=== PATIENT | female | born 1975 | race Caucasian/White ===

== ENCOUNTER 2020-06-20 08:00 | Outpatient (CLI) | payer OTHER ==
[2020-06-20 11:57] LABS: BASOPHILS # (AUTO) 0.1 10^3/uL (0.0-0.1); BASOPHILS % (AUTO) 0.6 %; EOSINOPHILS # (AUTO) 0.1 10^3/uL (0.0-0.7); EOSINOPHILS % (AUTO) 1.3 %; HGB - HEMOGLOBIN 13.8 g/dL (12.0-16.0); LYMPHOCYTES # (AUTO) 1.5 10^3/uL (1.5-3.5); LYMPHOCYTES % (AUTO) 18.8 %; MEAN CORPUSCULAR HEMOGLOBIN 29.4 pg (27.0-31.0); MEAN CORPUSCULAR HGB CONC 32.1 g/dL (32.0-36.0); MEAN CORPUSCULAR VOLUME 91.7 fL (81.0-99.0); MONOCYTES # (AUTO) 0.5 10^3/uL (0.0-1.0); MONOCYTES % (AUTO) 6.1 %; NEUTROPHILS # (AUTO) 5.7 10^3/uL (1.5-6.6); NEUTROPHILS % (AUTO) 72.8 %; PLT - PLATELET COUNT 230 10^3/uL (130-450); RED BLOOD COUNT 4.69 10^6/uL (4.20-5.40); WHITE BLOOD COUNT 7.8 x10^3/uL (4.8-10.8)
[2020-06-20 12:20] LABS: ALBUMIN 3.9 g/dL (3.2-5.5); ALBUMIN/GLOBULIN RATIO 1.3 (1.0-2.2); ALKALINE PHOSPHATASE 64 IU/L (42-121); ALT ALANINE AMINOTRANSFERASE 21 IU/L (10-60); AST ASPARTATE AMINOTRANSFERASE 18 IU/L (10-42); BILIRUBIN,TOTAL 0.7 mg/dL (0.2-1.0); BUN - BLOOD UREA NITROGEN 14 mg/dL (6-20); CALCIUM 8.7 mg/dL (8.5-10.3); CARBON DIOXIDE - CO2 26 mmol/L (21-32); CHLORIDE 104 mmol/L (101-111); CHOL/HDL RATIO 3.8 (<4.4); CHOLESTEROL 169 mg/dL; CREATININE 0.7 mg/dL (0.4-1.0); GLUCOSE 99 mg/dL (70-100); HDL CHOLESTEROL 45 mg/dL; LDL CHOLESTEROL,CALCULATED 96 mg/dL; LDL/HDL RATIO 2.1 (<4.4); SODIUM 137 mmol/L (135-145); TOTAL PROTEIN 6.9 g/dL (6.7-8.2); VLDL CHOLESTEROL 28 mg/dL
== END 2020-06-20 23:59 | disposition home or self-care (01) ==
LOC: LAB.WCP 08:00
PROVIDERS: ATTEND Physician Assistant
DX: Z00.00 Encounter for general adult medical examination without abnormal findings (principal)
CPT/HCPCS: 36415; 80053; 80061; 83036; 83721; 84443; 85025

== ENCOUNTER 2023-11-03 12:28 | Emergency (ER) | payer OTHER ==
[2023-11-03 13:23] LABS: BASOPHILS % (AUTO) 0.4 %; EOSINOPHILS # (AUTO) 0.1 10^3/uL (0.0-0.7); EOSINOPHILS % (AUTO) 1.2 %; HCT - HEMATOCRIT 44.2 % (37.0-47.0); HGB - HEMOGLOBIN 14.4 g/dL (12.0-16.0); LYMPHOCYTES # (AUTO) 1.9 10^3/uL (1.5-3.5); LYMPHOCYTES % (AUTO) 17.9 %; MEAN CORPUSCULAR HEMOGLOBIN 29.3 pg (27.0-31.0); MEAN CORPUSCULAR HGB CONC 32.6 g/dL (32.0-36.0); MEAN CORPUSCULAR VOLUME 89.8 fL (81.0-99.0); MEAN PLATELET VOLUME 10.1 fL (7.9-10.8); MONOCYTES # (AUTO) 0.7 10^3/uL (0.0-1.0); MONOCYTES % (AUTO) 6.1 %; NEUTROPHILS # (AUTO) 7.9 10^3/uL (1.5-6.6); NEUTROPHILS % (AUTO) 74.2 %; PLT - PLATELET COUNT 284 10^3/uL (130-450); RED BLOOD COUNT 4.92 10^6/uL (4.20-5.40); RED CELL DISTRIBUTION WIDTH 13.2 % (12.0-15.0); WHITE BLOOD COUNT 10.6 x10^3/uL (4.8-10.8)
[2023-11-03 13:45] LABS: ALBUMIN 4.7 g/dL (3.2-5.5); ALBUMIN/GLOBULIN RATIO 1.5 (1.0-2.2); BILIRUBIN,TOTAL 0.6 mg/dL (0.2-1.0); CALCIUM 9.9 mg/dL (8.5-10.3); CREATININE 0.8 mg/dL (0.6-1.3); POTASSIUM 3.8 mmol/L (3.5-4.5); TOTAL PROTEIN 7.9 g/dL (6.4-8.9)
--- NOTE | 2023-11-03 15:18 | ED Physician Documentation ---
PD HPI ABD PAIN - Stated complaint Stated Complaint: PX - Chief complaint Chief Complaint: Abd Pain - Additional information Additional information: 48-year-old male with history of 3 sections presents emergency department for left lower quadrant pain. Patient says that she has had left lower quadrant pain for years anytime she turns onto her left side but yesterday when she turned onto her left side the pain got significantly worse and it did not resolve. She has not had any diarrhea no nausea vomiting but says that it is very hard for her to get comfortable because of the persistent ongoing left lower quadrant pain. She has had no fevers or chills no difficulty urinating. PD PAST MEDICAL HISTORY - Past Medical History Past Medical History: Yes Cardiovascular: None Respiratory: None Neuro: None Endocrine/Autoimmune: None GI: None JANITORIAL CLEANER: Other : None HEENT: None Psych: None Musculoskeletal: Osteoarthritis - Past Surgical History Past Surgical History: Yes General: Cholecystectomy /JANITORIAL CLEANER: section - Present Medications Home Medications: Ambulatory Orders Medication Instructions Recorded Confirmed Amox/Clav 875/125 [Augmentin 1 tablet PO Q12H 10 Days #20 tablet 11/03/23 875/125 Tab] - Allergies Allergies/Adverse Reactions: Allergies Allergy/AdvReac Type Severity Reaction Status Date / Time morphine AdvReac Anxiety Verified 11/03/23 12:58 - Social History Does the pt smoke?: No Smoking Status: Never smoker Does the pt drink ETOH?: Yes Does the pt have substance abuse?: No - Immunizations Immunizations are current?: No Immunizations: Other immun not current - POLST Patient has POLST: No PD ED PE NORMAL - Vitals Vital signs reviewed: Yes - General General: Alert and oriented X 3, No acute distress, Well developed/nourished - Cardiac Cardiac: RRR, No gallop, Strong equal pulses - Respiratory Respiratory: No respiratory distress, Clear bilaterally - Abdomen Abdomen: Normal bowel sounds, Soft (Left lower quadrant tenderness with palpation), Non distended - Derm Derm: Normal color, Warm and dry, No rash Results - Vitals Vitals: Vital Signs - 24 hr 11/03/23 11/03/23 11/03/23 12:58 13:07 15:07 Temperature 36.3 C L 37.0 C Heart Rate 87 87 82 Respiratory 18 20 18 Rate Blood Pressure 148/111 H 138/96 H 132/84 H O2 Saturation 100 100 100 11/03/23 11/03/23 17:00 19:15 Temperature Heart Rate 82 83 Respiratory 16 16 Rate Blood Pressure 132/82 H 131/79 H O2 Saturation 98 98 Oxygen O2 Source Room air - Labs Labs: Laboratory Tests 11/03/23 11/03/23 11/03/23 13:15 13:15 13:15 WBC 10.6 RBC 4.92 Hgb 14.4 Hct 44.2 MCV 89.8 MCH 29.3 MCHC 32.6 RDW 13.2 Plt Count 284 MPV 10.1 Neut # (Auto) 7.9 H Lymph # (Auto) 1.9 [place] # (Auto) 0.7 Eos # (Auto) 0.1 Baso # (Auto) 0.0 Absolute Nucleated RBC 0.00 Nucleated RBC % 0.0 Sodium 135 Potassium 3.8 Chloride 100 L Carbon Dioxide 28 Anion Gap 7.0 BUN 17 Creatinine 0.8 Estimated GFR (MDRD) 76 L Glucose 96 Calcium 9.9 Magnesium Total Bilirubin 0.6 AST 26 ALT 44 Alkaline Phosphatase 99 Total Protein 7.9 Albumin 4.7 Globulin 3.2 Albumin/Globulin Ratio 1.5 Lipase 33 Urine Color YELLOW Urine Clarity CLEAR Urine pH 6.5 Ur Specific [place] <=1.005 Urine Protein NEGATIVE Urine Glucose (UA) NEGATIVE Urine Ketones NEGATIVE Urine Occult Blood MODERATE H Urine Nitrite NEGATIVE Urine Bilirubin NEGATIVE Urine Urobilinogen 0.2 (NORMAL) Ur Leukocyte Esterase NEGATIVE Urine RBC 0-5 Urine WBC 0-3 Ur Squamous Epith Cells FEW Squamous Urine Bacteria Rare Ur Microscopic Review INDICATED Urine Culture Comments NOT INDICATED Urine HCG, Qual NEGATIVE 11/03/23 11/03/23 17:15 17:15 WBC 8.9 RBC 4.66 Hgb 13.6 Hct 41.5 MCV 89.1 MCH 29.2 MCHC 32.8 RDW 13.2 Plt Count 252 MPV 9.9 Neut # (Auto) 6.7 H Lymph # (Auto) 1.5 [place] # (Auto) 0.5 Eos # (Auto) 0.1 Baso # (Auto) 0.0 Absolute Nucleated RBC 0.00 Nucleated RBC % 0.0 Sodium 138 Potassium 3.8 Chloride 103 Carbon Dioxide 28 Anion Gap 7.0 BUN 16 Creatinine 0.8 Estimated GFR (MDRD) 76 L Glucose 110 H Calcium 9.8 Magnesium 1.9 Total Bilirubin 0.5 AST 20 ALT 37 Alkaline Phosphatase 82 Total Protein 7.2 Albumin 4.3 Globulin 2.9 Albumin/Globulin Ratio 1.5 Lipase Urine Color Urine Clarity Urine pH Ur Specific [place] Urine Protein Urine Glucose (UA) Urine Ketones Urine Occult Blood Urine Nitrite Urine Bilirubin Urine Urobilinogen Ur Leukocyte Esterase Urine RBC Urine WBC Ur Squamous Epith Cells Urine Bacteria Ur Microscopic Review Urine Culture Comments Urine HCG, Qual - Rads (name of study) pelvic/vaginal ultrasound Relevant Findings:: Final report received, EMP independent interpretation of test (mildly prominent ultrasound, ovaries not visualized), Other abd pelvis CT Relevant Findings:: Final report received, EMP independent interpretation of test (acute sigmoid diverticulitis) PD Medical Decision Making - ED course ED course: 48-year-old female presents emergency room for left lower quadrant pain. We originally pursued vaginal ultrasound pelvic ultrasound for possible ovarian torsion but unfortunately the ovaries were not able to be visualized. We decided to pursue a CT scan of the abdomen pelvis which did reveal diverticulitis. Radiologist notes ethmoid diverticulitis but I do think that they were meeting to say the sigmoid diverticulitis. Patient was started on Augmentin here in the emergency department she declined to have any pain medication such as Tylenol ibuprofen or opioids she says that she feels like she is able to manage this at home without any problems on her own. She is told to follow-up with her primary care provider prescription sent to her preferred pharmacy to start Augmentin. Unfortunately on accident 2 sets of labs were collected on the patient due to missed read. There is no leukocytosis, no anemia. Chemistry appears to be overall unremarkable no leukocytes or nitrites in the urine indicative of possible UTI. Departure - Departure Disposition: 01 Home, Self Care Clinical Impression: Diverticulitis Condition: Good Instructions: Diverticulitis Dc Prescriptions: Amox/Clav 875/125 [Augmentin 875/125 Tab] 1 tablet PO Q12H 10 Days #20 tablet Comments: Thank you for trusting us with your care. We have completed a CT scan which does reveal that you have diverticulitis of the sigmoid. We have started you on an antibiotic called Augmentin here in the emergency department we have sent this prescription to your preferred pharmacy [facility] in [place] you will take this twice a day for the next 10 days. If after 7 days you feel your symptoms have fully resolved we do not need to fully complete the full 10-day course. Please follow-up with your primary care provider for further evaluation with them know about your emergency department visit and your new diverticulitis diagnoses. Please come back to the emergency department if you feel like you are starting to develop any fevers or chills, worsening abdominal pain, nausea vomiting or any other concerning symptoms. Wishing you a speedy recovery. Forms: PCP List Discharge Date/Time: 11/03/23 19:16
[2023-11-03 16:22] LABS: BILIRUBIN,URINE NEGATIVE (NEGATIVE); GLUCOSE, URINE (UA) NEGATIVE (NEGATIVE); KETONES,URINE (UA) NEGATIVE (NEGATIVE); LEUKOCYTE ESTERASE, URINE NEGATIVE (NEGATIVE); NITRITE,URINE NEGATIVE (NEGATIVE); OCCULT BLOOD,URINE MODERATE (NEGATIVE); PH,URINE 6.5 PH (5.0-7.5); PROTEIN,URINE NEGATIVE (NEGATIVE); UROBILINOGEN,URINE 0.2 (NORMAL) E.U./dL (NORMAL)
[2023-11-03 16:28] LABS: CLARITY,URINE CLEAR (CLEAR); HCG UR QUAL NEGATIVE
[2023-11-03 16:40] LABS: BACTERIA,URINE Rare /HPF (None Seen); RBC,URINE 0-5 /HPF (0-5); SQUAMOUS EPITHELIAL CELL,UR FEW Squamous (<= Few); WBC,URINE 0-3 /HPF (0-5)
[2023-11-03] MEDS ORDERED: iohexoL-300 100 ML VIAL ONE (17:05)
[2023-11-03 17:20] VITALS: O2SAT 98
--- NOTE | 2023-11-03 17:20 | Ultrasound Report ---
PROCEDURE: Pelvic w/Transvaginal INDICATIONS: pelvic pain TECHNIQUE: Real-time scanning was performed of the pelvic organs, with image documentation. Additional endovagi nal scanning was necessary due to incomplete visualization of the adnexal and endometrial structures by transabdominal scanning. COMPARISON: None. FINDINGS: Uterus: Uterus is anteverted and enlarged measuring 10.5 x 4.7 x 6.0 cm. The myometrium is homogene ous. The endometrium measures 5.2 mm in combined thickness. Ovaries: Not identified. Adnexal structures are unremarkable. Other: No pathologic free abdominal or pelvic fluid. IMPRESSION: Mildly prominent uterus. Ovaries are not visualized. Reviewed by: Yissel Perera MD on 11/03/2023 5:18 PM PST Approved by: Yissel Perera MD on 11/03/2023 5:18 PM PST Station ID: [id number]
[2023-11-03 17:21] LABS: BASOPHILS % (AUTO) 0.3 %; EOSINOPHILS # (AUTO) 0.1 10^3/uL (0.0-0.7); EOSINOPHILS % (AUTO) 1.3 %; HCT - HEMATOCRIT 41.5 % (37.0-47.0); HGB - HEMOGLOBIN 13.6 g/dL (12.0-16.0); LYMPHOCYTES # (AUTO) 1.5 10^3/uL (1.5-3.5); LYMPHOCYTES % (AUTO) 17.2 %; MEAN CORPUSCULAR HEMOGLOBIN 29.2 pg (27.0-31.0); MEAN CORPUSCULAR HGB CONC 32.8 g/dL (32.0-36.0); MEAN CORPUSCULAR VOLUME 89.1 fL (81.0-99.0); MEAN PLATELET VOLUME 9.9 fL (7.9-10.8); MONOCYTES # (AUTO) 0.5 10^3/uL (0.0-1.0); MONOCYTES % (AUTO) 6.1 %; NEUTROPHILS # (AUTO) 6.7 10^3/uL (1.5-6.6); NEUTROPHILS % (AUTO) 74.8 %; PLT - PLATELET COUNT 252 10^3/uL (130-450); RED BLOOD COUNT 4.66 10^6/uL (4.20-5.40); RED CELL DISTRIBUTION WIDTH 13.2 % (12.0-15.0); WHITE BLOOD COUNT 8.9 x10^3/uL (4.8-10.8)
[2023-11-03 17:28] LABS: MAGNESIUM 1.9 mg/dL (1.7-2.3)
[2023-11-03 17:35] LABS: ALBUMIN 4.3 g/dL (3.2-5.5); ALBUMIN/GLOBULIN RATIO 1.5 (1.0-2.2); BILIRUBIN,TOTAL 0.5 mg/dL (0.2-1.0); CALCIUM 9.8 mg/dL (8.5-10.3); CREATININE 0.8 mg/dL (0.6-1.3); POTASSIUM 3.8 mmol/L (3.5-4.5); TOTAL PROTEIN 7.2 g/dL (6.4-8.9)
--- NOTE | 2023-11-03 18:08 | CT Report ---
PROCEDURE: Abdomen/Pelvis W INDICATIONS: LLQ pain CONTRAST: 100mL Omni 300 TECHNIQUE: After the administration of intravenous contrast, a CT scan of the abdomen and pelvis was performed. Images were recorded and evaluated at appropriate window settings. Reformats: coronal and sagittal. F or radiation dose reduction, the following was used: automated exposure control, adjustment of mA and /or kV according to patient size. COMPARISON: None. FINDINGS: Image quality: Diagnostic. Lower chest: Unremarkable. Liver: No solid mass. Mild hepatic steatosis. Gallbladder and biliary tree: Surgically absent Spleen: No splenomegaly. Pancreas: No pancreatic ductal dilation. Adrenals: No adrenal nodule. Kidneys and ureters: No hydronephrosis. No renal cystic lesion which requires follow up. No solid mas s. Stomach, bowel and peritoneum: No bowel distension. No pathologic free fluid. Diverticulosis. There i s pericolonic stranding in the proximal sigmoid colon consistent with diverticulitis. Lymph nodes: No central or retroperitoneal adenopathy. Vessels: No infrarenal aortic aneurysm. PELVIS Reproductive organs: Unremarkable. Bladder: No abnormal wall thickening, accounting for underdistention. Pelvic lymph nodes: No pelvic adenopathy by size criteria. Bones: No aggressive osseous abnormality. Other: No significant ventral or inguinal hernia. IMPRESSION: 1. Acute ethmoid diverticulitis. No needs to suggest diverticular perforation or abscess. Reviewed by: Miroslava Rosario MD on 11/03/2023 6:07 PM [facility] Approved by: Miroslava Rosario MD on 11/03/2023 6:07 PM PST Station ID: [id number]
[2023-11-03] MEDS: iohexoL-300 100 ML VIAL IVP ONE (18:35)
[2023-11-03] MEDS: AMOX/CLAV 875 MG/125 MG TABLET PO STA (19:12)
[2023-11-03 19:21] VITALS: BP 131/79
== END 2023-11-03 19:16 | disposition home or self-care (01) ==
LOC: ED 12:28
DX: K57.32 Diverticulitis of large intestine without perforation or abscess without bleeding (principal)
CPT/HCPCS: 36415; 74177; 76830; 76856; 80053; 81001; 81025; 83690; 83735; 85025; 99284; A9270; Q9967; 81003; 87086